=== PATIENT | male | born 1945 | race American Indian/Alaskan Native ===

== ENCOUNTER → 2016-08-29 | Outpatient (CLI) | payer OTHER, MEDICAID ==
--- NOTE | 2016-08-29 15:39 | DX ---
Lumbar spine upright AP and lateral 1511 hours. History: Follow-up fusion. History of degenerative disk disease. Findings: Comparison to prior study from March 20, 2016. Comparison also to prior MRI lumbar spine f rom May 05, 2016. Vertebral body heights are well-maintained. Pedicle screws and paraspinal rods are in stable position from L3 through S1 with good alignment. Disk replacement material is also in stable position. The re maining intervertebral disk spaces of the upper lumbar spine are normal in appearance and stable. The re are no subluxations. There are no lytic or sclerotic osseous lesions or evidence of scoliosis. Impression: 1. Stable fusion from L3 through S1.
== END ==
LOC: FIMAGING 15:10
PROVIDERS: ATTEND Physician Assistant Surgical
DX: M51.36 Other intervertebral disc degeneration, lumbar region (principal); Z98.1 Arthrodesis status

== ENCOUNTER → 2017-05-19 | Outpatient (CLI) | payer OTHER, MEDICAID | LOC: FIMAGING 10:11 | PROVIDERS: ATTEND Physician Assistant Surgical | DX: M48.061 Spinal stenosis, lumbar region without neurogenic claudication (principal); M46.96 Unspecified inflammatory spondylopathy, lumbar region; M51.36 Other intervertebral disc degeneration, lumbar region; M51.37 Other intervertebral disc degeneration, lumbosacral region; Z98.1 Arthrodesis status ==

== ENCOUNTER → 2017-05-26 | Outpatient (CLI) | payer OTHER, MEDICAID | LOC: FIMAGING 10:15 | PROVIDERS: ATTEND Neurological Surgery | DX: M51.26 Other intervertebral disc displacement, lumbar region (principal); M54.40 Lumbago with sciatica, unspecified side; M48.061 Spinal stenosis, lumbar region without neurogenic claudication; Z98.1 Arthrodesis status ==

== ENCOUNTER → 2017-06-11 | Outpatient (CLI) | payer OTHER, MEDICAID | LOC: FIMAGING 10:24 | PROVIDERS: ATTEND Family Medicine | DX: Z01.811 Encounter for preprocedural respiratory examination (principal); J45.909 Unspecified asthma, uncomplicated; E78.1 Pure hyperglyceridemia ==

== ENCOUNTER → 2017-07-03 | Outpatient (CLI) | payer OTHER, MEDICAID | LOC: BHFA 12:00 | PROVIDERS: ATTEND Internal Medicine Cardiovascular Disease | DX: Z01.810 Encounter for preprocedural cardiovascular examination (principal) ==

== ENCOUNTER 2017-07-07 11:03 | Inpatient (IN) | payer OTHER, MEDICAID ==
[2017-07-07] MEDS ORDERED: LIDOCAINE 1% 2 ML INJ ID PRN (11:46)
[2017-07-07] MEDS ORDERED: LR 1,000 ML IV ONE (11:46)
[2017-07-07] MEDS ORDERED: THROMBIN (BOVINE) 20,000 UNIT VIAL TP ONE (12:20)
[2017-07-07] MEDS ORDERED: BUPIVACAINE 0.25% 30 ML SDV ONE ×2 (12:20→12:21)
[2017-07-07] MEDS ORDERED: CITRATE DEXTROSE SOLN 500 ML BAG ONE (12:21)
[2017-07-07] MEDS ORDERED: BACITRACIN 50,000 UNITS/10 ML SYR IRR ONE (12:21)
--- NOTE | 2017-07-07 12:32 | PDHPUP ---
History & Physical Update H&P update statement: This history and physical update is based on an assessment of the patient which was completed after admission or registration (within 24 hours), but prior to the surgery/procedure. H&P update: H&P reviewed & patient examined, no change in patient's condition since H&P completed (Consent signed and site marked. All questions answered.)
[2017-07-07] MEDS ORDERED: MIDAZOLAM 2 MG/2 ML VIAL IVP ONE (12:34)
[2017-07-07] MEDS ORDERED: MIDAZOLAM 2 MG/2 ML VIAL ONE (12:35)
[2017-07-07] MEDS ORDERED: GABAPENTIN 300 MG CAP PO ONE (12:36)
[2017-07-07] MEDS ORDERED: ACETAMINOPHEN 500 MG TAB PO ONE (12:36)
[2017-07-07] MEDS ORDERED: ceFAZolin 2 GM/SWFI 2 GM/20 ML SYR IVP ONE (12:36)
[2017-07-07] MEDS ORDERED: morphINE PF 5 MG/10 ML INJ IT ONE (12:36)
--- NOTE | 2017-07-07 12:37 | PDGENHP ---
History and Physical - Chief Complaint neurogenic claudication - History of Present Illness Mr. Whitlock is known to us for both cervical spine and carpal tunnel surgeries. His cervical spine MRI showed a spondylolisthesis of C4 in relation to C5 and spinal stenosis at the C5/C6 level with foraminal stenosis. On clinical examination he had evidence of weakness in his hands and gait imbalance which had been progressive. His EMG also showed right sided carpal tunnel syndrome. We discussed the risks and benefits and treatment alternatives, including no intervention, but given his progressive weakness and difficulty with his balance and findings on cervical MRI, we recommended surgical intervention. He agreed and underwent C4/C5/C6 ACDF on 06/16/14. After careful decision making and discussion he then underwent CTR on 11/24/[address] Deutsch. He had shoulder pain after an accident and ortho eval revealed general degeneration in the shoulder without acute injury. He had been experiencing low back pain and circumferential bilateral leg pain down the knees. . He trialed conservative management and injections and ultimately underwent an L3-S1 TLIF/PSF with Dr. Deutsch on 09/18/15. He presented 1.5 years post operatively after his lumbar fusion with worsening pain in his legs. He states that sometimes his left leg gives out on him. He has low back pain that radiates to both sides and down to his buttock. He has pain in his anterior thighs to the level of his knees. If he sits still the pain improves but if he is up and walking or changing positions frequently it makes the pain worse. He states that the pain in his leg is getting progressively worse and he is having weakness in his anterior thighs. Standing up straight make the pain worse. He is unable to hike or even walk around [employer] or [employer]. ROS: Negative other then HPI Problems Problem Status Onset Fusion of lumbar spine Acute Allergy/AdvReac Type Severity Reaction Status Date / Time No Known Allergies Allergy Verified 06/10/17 13:09 Home medications: Fluticasone Nasal [Flonase Nasal [place]] 1 - 2 sprays EACHNARE HS 05/27/14 [Last Taken Unknown] Acetaminophen [Tylenol 325mg (*)] 325 mg PO DAILY PRN 06/05/17 [Last Taken Unknown] Albuterol [Proventil Inhaler HFA (*)] 1 - 2 puffs IH DAILY PRN 06/05/17 [Last Taken Unknown] Aspirin [Aspirin 325 mg (*)] 325 mg PO HS 06/05/17 [Last Taken Unknown] Cetirizine [ZyrTEC 10 mg (*)] 10 mg PO HS 06/05/17 [Last Taken Unknown] Cyclobenzaprine [Flexeril 10 MG (*)] 10 mg PO HS PRN 06/05/17 [Last Taken Unknown] Halobetasol Propionate 1 christa TP DAILY PRN 06/05/17 [Last Taken Unknown] Meloxicam 15 mg PO DAILY PRN 06/05/17 [Last Taken Unknown] Terbinafine HCl [LamISIL 250 MG (*)] 250 mg PO HS 06/05/17 [Last Taken Unknown] Family History: Relationship Family Member Name Age at Condition Onset Age Cause of Sister N Alive and Well Smoking Status: Use Status Type Smoking Status Usage Per Day Years Used Total Pack Years no/never Tobacco Cessation Information: Smoking status: Never smoker. Social History: Tobacco use Denies Preferred language is Omani. 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 Marital Status/Family/Social Support: Currently single. Alcohol Use: There is a history of alcohol use. consumed occasionally. Past Medical history ACDF C4-6 2013 Prior lumbar fusion L3-S1 CTR on 11/24/14 Physical Exam Temp Pulse Resp BP Pulse Ox 36.4 C 73 18 136/77 H 93 07/07/17 11:48 07/07/17 11:48 07/07/17 11:48 07/07/17 11:48 07/07/17 11:48 NAD A&Ox3 MAEx4 5/5 and equal in BUE and BLE. Sensation intact in BUE and BLE Assessment and Plan Medardo is a 71y/o male with a history of L3-S1 TLIF/PSF, who is has neurogenic claudication and lumbar stenosis. His new MRI demonstrates severe stenosis adjacent to his lumbar fusion at L2/3. His CT scan demonstrated bony growth across his prior fusion. Given his symptoms and imaging findings have recommended Exploration, revision and possible removal of prior hardware L3-S1; L2/3 laminectomy with left L2/3 TLIF; PSF L2-4 He will follow up in the office for a lvl3 consent visit. If he develops any new or worsening symptoms he is encouraged to give our office a call. History Information - Allergies/Home Medication List Allergies/Adverse Reactions: No Known Allergies Allergy (Verified 06/10/17 13:09) Home Medications: Fluticasone Nasal [Flonase Nasal [place]] 1 - 2 sprays EACHNARE HS 05/27/14 [Last Taken Unknown] Acetaminophen [Tylenol 325mg (*)] 325 mg PO DAILY PRN 06/05/17 [Last Taken Unknown] Albuterol [Proventil Inhaler HFA (*)] 1 - 2 puffs IH DAILY PRN 06/05/17 [Last Taken Unknown] Aspirin [Aspirin 325 mg (*)] 325 mg PO HS 06/05/17 [Last Taken Unknown] Cetirizine [ZyrTEC 10 mg (*)] 10 mg PO HS 06/05/17 [Last Taken Unknown] Cyclobenzaprine [Flexeril 10 MG (*)] 10 mg PO HS PRN 06/05/17 [Last Taken Unknown] Halobetasol Propionate 1 christa TP DAILY PRN 06/05/17 [Last Taken Unknown] Meloxicam 15 mg PO DAILY PRN 06/05/17 [Last Taken Unknown] Terbinafine HCl [LamISIL 250 MG (*)] 250 mg PO HS 06/05/17 [Last Taken Unknown] I have personally reviewed and updated: family history, medical history, social history, surgical history - Social History Smoking Status: Never smoked Review of Systems Review of Systems: Physical Exam Physical Exam: Temp Pulse Resp BP Pulse Ox 36.4 C 73 18 136/77 H 93 07/07/17 11:48 07/07/17 11:48 07/07/17 11:48 07/07/17 11:48 07/07/17 11:48
[2017-07-07] MEDS ORDERED: PROPOFOL/EMULSION 500 MG/50 ML BOTTLE IV ONE ×2 (12:45→14:57)
[2017-07-07] MEDS ORDERED: fentaNYL 100 MCG/2 ML INJ ONE (12:45)
[2017-07-07] MEDS ORDERED: DEXAMETHASONE 4 MG/ML VIAL ONE ×2 (12:45)
[2017-07-07] MEDS ORDERED: REMIFENTANIL HCL 1 MG VIAL ONE ×2 (12:45→14:56)
[2017-07-07] MEDS ORDERED: ONDANSETRON 4 MG/2 ML VIAL ONE (12:45)
[2017-07-07] MEDS ORDERED: LIDOCAINE 2% 100 MG/5 ML SYR ONE (12:45)
--- NOTE | 2017-07-07 12:52 | PDANEPAE ---
ANE History of Present Illness lumbar laminectomy and hardware revision ANE Past Medical History - Cardiovascular History Hx Hypertension: No Hx Arrhythmias: No Hx Chest Pain: No Hx Coronary Artery / Peripheral Vascular Disease: No Hx CHF / Valvular Disease: No Hx Palpitations: No Cardiovascular History Comment: dyslipidemia - Pulmonary History Hx COPD: No Hx Asthma/Reactive Airway Disease: Yes Hx Recent Upper Respiratory Infection: No Hx Oxygen in Use at Home: No Hx Sleep Apnea: No Sleep Apnea Screening Result - Last Documented: Negative Pulmonary History Comment: ASTHMA USES INHALERS- instructed pt to bring inhalers to hospital - Neurologic History Hx Cerebrovascular Accident: No Hx Seizures: No Hx Dementia: No Neurologic History Comment: HX OF BACK SURGERY x3. DJD - Endocrine History Hx Diabetes: No - Renal History Hx Renal Disorders: No - Liver History Hx Hepatic Disorders: No - Neurological & Psychiatric Hx Hx Neurological and Psychiatric Disorders: No - Cancer History Hx Cancer: No - Congenital Disorder History Hx Congenital Disorders: No - GI History Hx Gastrointestinal Disorders: Yes Gastrointestinal History Comment: GERD - Other Health History Other Health History: ALLERGIC RHINITIS. ECZEMA. wears glasses - Chronic Pain History Chronic Pain: Yes (back and right arm) - Surgical History Prior Surgeries: 09/18/15 l3-4, l3-s1 TLIF with Rajpal. 2015 CARPAL TUNNEL SURG R. 05/2014 C4/5 C 5/6 RADICULOPATHY. BACK SURGERY X2 FOR RUPTURED DISCS ANE Review of Systems Review of Systems: - Exercise capacity METS (RN): 4 METS ANE Patient History - Allergies Allergies/Adverse Reactions: No Known Allergies Allergy (Verified 06/10/17 13:09) - Home Medications Home medications: home medication list seen and reviewed Home Medications: Fluticasone Nasal [Flonase Nasal [place]] 1 - 2 sprays EACHNARE HS 05/27/14 [Last Taken 07/07/17 08:00] Acetaminophen [Tylenol 325mg (*)] 325 mg PO DAILY PRN 06/05/17 [Last Taken 06/02] Albuterol [Proventil Inhaler HFA (*)] 1 - 2 puffs IH DAILY PRN 06/05/17 [Last Taken 07/07/17 08:00] Aspirin [Aspirin 325 mg (*)] 325 mg PO HS 06/05/17 [Last Taken 06/29/17] Cetirizine [ZyrTEC 10 mg (*)] 10 mg PO HS 06/05/17 [Last Taken 07/06/17 21:00] Cyclobenzaprine [Flexeril 10 MG (*)] 10 mg PO HS PRN 06/05/17 [Last Taken 21:00] Halobetasol Propionate 1 christa TP DAILY PRN 06/05/17 [Last Taken 06/09/17] Meloxicam 15 mg PO DAILY PRN 06/05/17 [Last Taken 06/30/17] Terbinafine HCl [LamISIL 250 MG (*)] 250 mg PO HS 06/05/17 [Last Taken 07/05/17] - NPO status NPO Status: no food or drink >8 hours NPO Since - Liquids (Date): 07/06/17 NPO Since - Liquids (Time): 23:00 NPO Since - Solids (Date): 07/06/17 NPO Since - Solids (Time): 22:00 - Anes Hx Anes Hx: no prior problems - Smoking Hx Smoking Status: Never smoked - Alcohol Use Alcohol Use: Rarely - Family Anes Hx Family Anes Hx: none Family Hx Anesthesia Complications: NONE ANE Labs/Vital Signs - Labs - CBC WBC: reviewed and okay - Vital Signs Blood Pressure: 136/77 Heart Rate: 73 Respiratory Rate: 18 O2 Sat (%): 93 Height: 162.56 cm Weight: 74.843 kg ANE Physical Exam - Airway Neck exam: FROM Mallampati Score: Class 2 Mouth exam: normal dental/mouth exam - Pulmonary Pulmonary: no respiratory distress - Cardiovascular Cardiovascular: regular rate and rhythym ANE Anesthesia Plan Anesthesia Plan: general endotracheal anesthesia (R/B/A explained and patient agrees to proceed)
[2017-07-07] MEDS ORDERED: epHEDrine SULFATE 10 MG/ML SYR ONE ×2 (13:05)
[2017-07-07] MEDS ORDERED: PHENYLEPHRINE HCL 100 MCG/ML SYR ONE (13:18)
[2017-07-07] MEDS ORDERED: PHENYLEPHRINE 10 MG/ML SDV ONE (13:20)
[2017-07-07] MEDS ORDERED: morphINE PF 5 MG/10 ML INJ ONE (14:54)
[2017-07-07] MEDS ORDERED: ALBUTEROL 3 ML DEYVIAL IH PRN (16:09)
[2017-07-07] MEDS ORDERED: MEPERIDINE 25 MG/ML SYR IVP PRN (16:09)
[2017-07-07] MEDS ORDERED: PHENYLEPHRINE HCL 100 MCG/ML SYR IVP PRN (16:09)
[2017-07-07] MEDS ORDERED: fentaNYL 100 MCG/2 ML INJ IVP PRN (16:09)
[2017-07-07] MEDS ORDERED: ACETAMINOPHEN 500 MG TAB PO PRN (16:09)
[2017-07-07] MEDS ORDERED: ONDANSETRON 4 MG/2 ML VIAL IVP PRN ×2 (16:09→16:38)
[2017-07-07] MEDS ORDERED: OXYCODONE/APAP 5/325 TAB PO PRN (16:09)
[2017-07-07] MEDS ORDERED: PROMETHAZINE HCL 25 MG/ML INJ IVP PRN (16:09)
[2017-07-07] MEDS ORDERED: HYDROCODONE/APAP 5/325 TAB PO PRN (16:09)
[2017-07-07] MEDS ORDERED: METOCLOPRAMIDE 10 MG/2 ML VIAL IVP PRN (16:09)
[2017-07-07] MEDS ORDERED: DEXAMETHASONE 4 MG/ML VIAL IVP PRN (16:09)
[2017-07-07] MEDS ORDERED: DIAZEPAM 10 MG/2 ML SYR IVP PRN (16:09)
[2017-07-07] MEDS ORDERED: LR 500 ML IV PRN (16:09)
[2017-07-07] MEDS ORDERED: NALOXONE HCL 0.4 MG/ML INJ IVP PRN (16:09)
[2017-07-07] MEDS ORDERED: CYCLOBENZAPRINE 10 MG TAB PO PRN ×2 (16:32→16:49)
[2017-07-07] MEDS ORDERED: ALBUTEROL 200 PUFFS/18 GM MDI IH PRN (16:32)
[2017-07-07] MEDS ORDERED: HALOBETASOL PROPIONATE TP PRN (16:32)
[2017-07-07] MEDS ORDERED: ACETAMINOPHEN 325 MG TAB PO PRN (16:32)
[2017-07-07] MEDS ORDERED: BISACODYL 10 MG SUPP PR PRN (16:38)
[2017-07-07] MEDS ORDERED: diphenhydrAMINE 25 MG CAP PO PRN (16:38)
[2017-07-07] MEDS ORDERED: HYDROmorphONE/DILAUDID 1 MG/ML INJ IVP PRN (16:38)
[2017-07-07] MEDS ORDERED: ONDANSETRON DISINTEGRATING 4 MG TAB PO PRN (16:38)
[2017-07-07] MEDS ORDERED: MAGNESIUM HYDROXIDE 30 ML UDCUP PO PRN (16:38)
[2017-07-07] MEDS ORDERED: LACTULOSE 20 GM/30 ML UDCUP PO PRN (16:38)
[2017-07-07] MEDS ORDERED: POLYETHYLENE GLYCOL 3350 17 GM PKT PO PRN (16:38)
[2017-07-07] MEDS ORDERED: NS W/ 20 KCl/L 1,000 ML IV SCH (16:45)
--- NOTE | 2017-07-07 16:52 | POSTOPPROG ---
Post Op Note Date of Operation: 07/07/17 Surgeon: Brynn Little Sheriffs: Mamta Little PA-C Anesthesiologist: Bernardo Anesthesia: GET(General Endotracheal) Pre-op Diagnosis: lumbar stenosis Post-op Diagnosis: same Indication: nerve compression Procedure: lumbar hardware exploration/removal L5-S1, L23 lami/TLIF, L2-4 PSF Findings: Please see dictation Inf/Abcess present in the surg proc area at time of surgery?: No Depth: Organ Space EBL: 100-500 Complications: none Drains: Fercho CLARK Addendum - Addendum .: S: Pt awake in PACU, denies back pain O: Sleepy - awakens easily and is alert and appropriate NAD VSS MAEx4 Motor 5/5 BUE/BLE Incision dressed cdi Spears JPx1 A: 71 yo M s/p lumbar hardware exploration/removal L5-S1, L23 lami/TLIF, L2-4 PSF P: PT/OT Brace when OOB Pain management TEDs, SCDs, lovenox POD#1 Post op xrays pending ADRIANA spears in AM Call NS with any issues
[2017-07-07] MEDS ORDERED: OXYCODONE/APAP 5/325 TAB ONE (18:46)
[2017-07-07] MEDS: ceFAZolin 2 GM/DEXTROSE 100 ML IV SCH (20:40)
[2017-07-07] MEDS: METHOCARBAMOL 750 MG TAB PO PRN (20:41)
[2017-07-07] MEDS: CETIRIZINE 10 MG TAB PO SCH (20:41)
[2017-07-07] MEDS: FAMOTIDINE 20 MG TAB PO SCH (20:41)
[2017-07-07] MEDS: SENNOSIDES/DOCUSATE SODIUM TAB PO SCH (20:41)
[2017-07-07] MEDS: TERBINAFINE HCL 250 MG TAB PO SCH (20:51)
[2017-07-07] MEDS ORDERED: FLUTICASONE NASAL 120 SPRAYS/16 GM MDI EACHNARE SCH (21:00)
[2017-07-07] MEDS: POLYETHYLENE GLYCOL 3350 17 GM PKT PO SCH (21:58)
[2017-07-07] MEDS: ACETAMINOPHEN 500 MG TAB PO SCH (21:58)
[2017-07-07] MEDS: oxyCODONE IR 5 MG TAB PO PRN (21:58)
--- NOTE | 2017-07-08 03:04 | GOP ---
[f rep st] OPERATIVE REPORT DATE OF OPERATION: 07/07/2017 SURGEON: Mynor Deutsch MD CLOUD ENGINEER: ANA MARIA Mitchell ANESTHESIA: General. PREOPERATIVE DIAGNOSIS: 1. Adjacent level breakdown at L2-L3 with previous spinal fusion L2 through S1. 2. Low back pain and lower extremity claudication and weakness. 3. Treatment refractory to nonoperative intervention. POSTOPERATIVE DIAGNOSIS: 1. Adjacent level breakdown at L2-L3 with previous spinal fusion L2 through S1. 2. Low back pain and lower extremity claudication and weakness. 3. Treatment refractory to nonoperative intervention. PROCEDURE PERFORMED: 1. Posterior arthrodesis with approach to L2, L3, L4, L5, and S1. 2. Exploration of prior lumbar hardware L3 through S1, with subsequent removal of posterior segmental instrumentation, including the bilateral rods and bilateral pedicle screws from the L5 and S1 levels. 3. Placement of new bilateral pedicle screws into the L2 level from the Orthofix Firebird System. 4. Decompressive laminectomy L2-L3 with bilateral mesial facetectomies. 5. Left-sided L2-L3 transforaminal lumbar interbody fusion with a 7 x 23 mm Cuikertronic Elevate PEEK titanium cage filled with morselized autograft and allograft. 6. Posterolateral fusion on the right between L2-L3 with morselized autograft and allograft. 7. Posterolateral fusion with bilateral segmental hardware placement from L2 through L4 from the Orthofix Firebird system. 8. Use of intraoperative 3D Stealth navigation. 9. Use of intraoperative fluoroscopy, less than 1 hour physician time. 10. Use of neuromonitoring. 11. Use of operating microscope. 12. Injection of preservative-free intrathecal narcotics. FINDINGS: per imaging SPECIMENS: None. ESTIMATED BLOOD LOSS: 300 mL. INDICATIONS: The patient is a 71-year-old gentleman who has undergone prior multiple lumbar fusions by myself, including L3 through S1 level from which he did quite well several years ago. He presented with worsening low back pain and lower extremity radiculopathy and weakness. He had evidence of severe spinal stenosis at L2-L3 with adjacent level breakdown. After discussion of risks, benefits, and treatment alternatives, and after failing nonoperative intervention, we decided to proceed forth with surgery as described above. DESCRIPTION OF PROCEDURE: The patient was brought to the operating theater and underwent general endotracheal anesthesia without complications. He had Venodynes, JORGE hose, and the appropriate lines placed by Anesthesia. He was flipped prone onto the Fercho table and all bony prominences were inspected and padded. The previous lumbar incision was identified and prepped and draped in the usual sterile surgical fashion. A time-out was completed per protocol, and the patient received antibiotics within 1 hour of incision. The previous incision was identified and marked more cranially. The incision was infiltrated with Marcaine with epinephrine and taken down with the scalpel blade. Using monopolar, the incision was then taken down in the midline through the lumbodorsal fascia, and we identified the spinous process of L2-L3, and skived off laterally with a subperiosteal dissection until we identified the previous hardware at the L3, L4, L5, and S1 levels bilaterally. We sequentially removed the cap screws and bilateral rods from L3 through S1 and passed them off the field. We then explored the hardware, and he had evidence of good bony growth on the hardware, demonstrating good solid fusion. At this point, we sequentially removed the bilateral pedicle screws from the L5 and S1 levels and passed them off the field. We then attached a 3D Stealth navigation clamp to the spinous process of L3 and completed a 3D Stealth navigation spin. Using 3D Stealth navigation, we placed the jet pilot holes for the bilateral pedicle screws into L2. All holes were manually palpated with no evidence of any cortical breaches. We then tapped and placed a 6.5 x 50 mm screw bilaterally in the L2 from the Rambusd system. Another 3D Stealth navigation spin demonstrated good placement of the hardware. At this point, the microscope was brought into the field to assist with microscopic dissection and to maintain illumination and magnification. Using a combination of the bur tip on the drill bit, Kerrison punches, and a Leksell rongeur, we completed decompressive laminectomy with bilateral mesial facetectomies at L2-L3. We resected the pars on the left side between L2-3 and completed a foraminotomy. We then distracted the L2-L3 disk space and completed a left-sided L2-3 diskectomy. We prepared the cartilage endplates and measured interbody space. We then placed a 7 x 23 mm titanium PEEK Elevate cage filled with morselized autograft and allograft anteriorly toward the midline. We packed additional morselized autograft in the disk space interbody fusion. We let down distraction and decorticated the bone on the right side between L2 and L3. We placed 2 lordotic rods into the heads of the screws between L2 and L4, and secured them down with cap screws, which were tightened per the malt liquors sales supervisor's setting. We irrigated the wound copiously with bacitracin irrigation and placed morselized autograft and allograft on the right side between L2 to 3 for the posterolateral fusion. We injected preservative-free intrathecal narcotics and left a drain in the subfascial space. The wound was then closed in multiple layers using Vicryl sutures in the deep layers and Dermabond for the skin. The patient's wounds were dressed sterilely. He was flipped supine onto the transfer cart. He was awakened, extubated, and taken to the recovery room in stable condition. There were no complications and no noted changes on neuromonitoring throughout the procedure. COMPLICATIONS: None. /[id number]/MODL MTDD
[2017-07-08] MEDS: METHOCARBAMOL 750 MG TAB PO PRN ×2 (04:52→16:18)
[2017-07-08] MEDS: ACETAMINOPHEN 500 MG TAB PO SCH ×3 (04:52→20:50)
[2017-07-08] MEDS: ceFAZolin 2 GM/DEXTROSE 100 ML IV SCH (04:52)
[2017-07-08] MEDS: oxyCODONE IR 5 MG TAB PO PRN ×4 (04:52→20:50)
--- NOTE | 2017-07-08 07:40 | NEUSURGPN ---
Date of Surgery: 07/07/17 Post Op Day: 1 Assessment/Plan: Assessment: 71 yo M s/p lumbar hardware exploration/removal L5-S1, L2/3 lami/ TLIF, L2-4 PSF POD #1 Plan: -s/p L spine fusion: legs feel better, pt with expected lower back pain -PT/OT -Brace when OOB-sister to bring in brace later this am -Pain management -TEDs, SCDs, lovenox POD#1 -Post op xrays pending today -DC spears this AM -call with any questions or concerns -pt understands and agrees -pt seen by Dr Deutsch as well Subjective: Awake and alert. NAD. Eating/drinking and voiding. No f/c/n/v/d. Objective: NAD VSS PERRLA/EOMI no droop MAEx4 Motor 5/5 BUE/BLE Incision dressed cdi Spears JPx1 Neuro Check Frequency: per routine Urinary Catheter in Place: Yes Urinary Catheter Indication: Other (Use Comment) (to be removed this am) - Physician Discussed Patient with Dr.: Deutsch Neurosurgery Physical Exam - Vitals, I&O, Labs I and O 07/07/17 07/08/17 07/09/17 05:59 05:59 05:59 Intake Total 2350 Output Total 2580 Balance -230 Weight 74.843 kg Intake: Oral (ml) 500 IV Intake (ml) 1850 Output: Urine (ml) 2100 Catheter 2100 Estimated Blood Loss (ml) 400 SOLA Drain Output (ml) 80 #1 Back 80 Other: Number of Voids Catheter 1 Vital Signs Temp Pulse Resp BP Pulse Ox 36.9 C 96 16 113/64 92 07/08/17 05:04 07/08/17 05:04 07/08/17 05:04 07/08/17 05:04 07/08/17 05:04 ICD10 Worksheet Patient Problems: Problems Problem Status Onset Lumbar stenosis Acute Fusion of lumbar spine Acute - ICD10 Problem Qualifiers (1) Lumbar stenosis
[2017-07-08] MEDS: POLYETHYLENE GLYCOL 3350 17 GM PKT PO SCH ×3 (09:08→20:49)
[2017-07-08] MEDS: FAMOTIDINE 20 MG TAB PO SCH ×2 (09:09→20:50)
[2017-07-08] MEDS: ENOXAPARIN 40 MG/0.4 ML SYR SC SCH (09:09)
[2017-07-08] MEDS: SENNOSIDES/DOCUSATE SODIUM TAB PO SCH ×2 (09:09→20:50)
[2017-07-08] MEDS: FLUTICASONE NASAL 120 SPRAYS/16 GM MDI EACHNARE SCH (09:12)
--- NOTE | 2017-07-08 17:11 | ASMTCASEMG ---
Living Arrangements What is your living Answers: With Other Relative(s) arrangement? Who do you live with? Type Of Residence What kind of residence do Answers: House you live in? Discharge Plan Comments Coordination Status Comments Notes: Pt is a 71 y/o man admitted for adjacent lateral stenosis, weabuens and back pain. CM met w/ pt for dispo planning. Pt lives w/ his sister Minerva and brother in law. Pt reports that he had HC in the past and had a great experience but could not remember which agency it was. Pt requested that CM speaks w/ his sister Minerva (P#: [phone]). Therapies have been ordered and awaiting recommendation. CM left a msg w/ Minerva and requested a call back. Needs are TBD at this time. CM to follow. Plan: TBD Date Signed: 07/08/2017 05:11 PM Electronically Signed By:ELYSSA Phipps
[2017-07-08] MEDS: TERBINAFINE HCL 250 MG TAB PO SCH (20:49)
[2017-07-08] MEDS: CETIRIZINE 10 MG TAB PO SCH (20:52)
[2017-07-09] MEDS: METHOCARBAMOL 750 MG TAB PO PRN ×3 (05:18→22:01)
[2017-07-09] MEDS: ACETAMINOPHEN 500 MG TAB PO SCH ×3 (05:18→22:02)
[2017-07-09] MEDS: oxyCODONE IR 5 MG TAB PO PRN ×4 (05:18→22:01)
[2017-07-09] MEDS: POLYETHYLENE GLYCOL 3350 17 GM PKT PO SCH ×3 (08:29→22:06)
[2017-07-09] MEDS: FLUTICASONE NASAL 120 SPRAYS/16 GM MDI EACHNARE SCH (08:29)
[2017-07-09] MEDS: FAMOTIDINE 20 MG TAB PO SCH ×2 (08:29→22:02)
[2017-07-09] MEDS: ENOXAPARIN 40 MG/0.4 ML SYR SC SCH (08:29)
[2017-07-09] MEDS: SENNOSIDES/DOCUSATE SODIUM TAB PO SCH ×2 (08:30→22:00)
--- NOTE | 2017-07-09 12:53 | NEUSURGPN ---
Date of Surgery: 07/07/17 Post Op Day: 2 Assessment/Plan: Assessment: 71 yo M s/p lumbar hardware exploration/removal L5-S1, L2/3 lami/ TLIF, L2-4 PSF POD #2 Plan: -s/p L spine fusion: legs feel better, pt with expected lower back pain -PT/OT -Brace when OOB -Pain management-CPM -TEDs, SCDs, lovenox POD#1 -Post op xrays look good -Serra out -will d/w Dr Deutsch regarding removal of SOLA -call with any questions or concerns -pt understands and agrees -pt seen by Dr Deutsch as well Subjective: Awake and alert. NAD. Eating/drinking and voiding. No f/c/n/v/d. No schmitz/neck/ chest/abd or gu complaints. Passing gas no BM as of yet Objective: NAD VSS PERRLA/EOMI no droop MAEx4 Motor 5/5 BUE/BLE Incision dressed cdi Serra out JPx1 Neuro Check Frequency: per routine Urinary Catheter in Place: No - Physician Discussed Patient with DrAgata: La Nena Patient Seen by : La Nena Neurosurgery Physical Exam - Vitals, I&O, Labs I and O 07/08/17 07/09/17 07/10/17 05:59 05:59 05:59 Intake Total 2350 1400 Output Total 2580 780 Balance -230 620 Weight 74.843 kg Intake: Oral (ml) 500 1300 IV Intake (ml) 1850 100 Output: Urine (ml) 2100 450 Catheter 2100 Urinal 450 Estimated Blood Loss (ml) 400 SOLA Drain Output (ml) 80 330 #1 Back 80 330 Other: Intake Quantity Yes Sufficient Number of Voids Catheter 1 Toilet 2 Urinal 2 Vital Signs Temp Pulse Resp BP Pulse Ox 36.9 C 85 14 120/80 93 07/09/17 07:27 07/09/17 07:27 07/09/17 07:27 07/09/17 07:27 07/09/17 07:27 ICD10 Worksheet Patient Problems: Problems Problem Status Onset Lumbar stenosis Acute Fusion of lumbar spine Acute - ICD10 Problem Qualifiers (1) Lumbar stenosis
--- NOTE | 2017-07-09 14:15 | ASMTCMCOM ---
CM Note CM Note Notes: Chart reviewed. Per therapies no home needs identified at this time. Anticipate that patient will dc home without needs. CM available should needs arise. Date Signed: 07/09/2017 02:15 PM Electronically Signed By:Annette Kaplan RN
[2017-07-09 16:01] VITALS: RESP 16
[2017-07-09] MEDS: TERBINAFINE HCL 250 MG TAB PO SCH (22:01)
[2017-07-09] MEDS: CETIRIZINE 10 MG TAB PO SCH (22:02)
[2017-07-10] MEDS: ACETAMINOPHEN 500 MG TAB PO SCH (05:30)
[2017-07-10] MEDS: oxyCODONE IR 5 MG TAB PO PRN ×2 (05:31→10:32)
[2017-07-10] MEDS: METHOCARBAMOL 750 MG TAB PO PRN (05:31)
[2017-07-10 08:16] VITALS: TEMP 98.2
[2017-07-10] MEDS: FAMOTIDINE 20 MG TAB PO SCH (08:29)
[2017-07-10] MEDS: FLUTICASONE NASAL 120 SPRAYS/16 GM MDI EACHNARE SCH (08:29)
[2017-07-10] MEDS: ENOXAPARIN 40 MG/0.4 ML SYR SC SCH (08:30)
--- NOTE | 2017-07-10 08:47 | NEUSURGPN ---
Assessment/Plan: Assessment: 71 yo M s/p lumbar hardware exploration/removal L5-S1, L2/3 lami/ TLIF, L2-4 PSF POD #3 Plan: -s/p L spine fusion: legs feel better, pt with expected lower back pain -PT/OT -Brace when OOB -Pain management-CPM -TEDs, SCDs, lovenox POD#1 -Post op xrays look good -Serra out -DC SOLA drain -DC to home with [facility] later today as long as patient continues to do well -OK to shower, change dressing. -pt d/w Dr Deutsch Subjective: Pt resting in bedside chair, states he is doing well overall. Objective: AAOx3 NAD VSS MAEx4 Motor 5/5 BLE Brace on JPx1 +LT Urinary Catheter in Place: No - Physician Discussed Patient with : La Nena Neurosurgery Physical Exam - Vitals, I&O, Labs I and O 07/09/17 07/10/17 07/11/17 05:59 05:59 05:59 Intake Total 1400 500 Output Total 780 120 Balance 620 380 Intake: Oral (ml) 1300 500 IV Intake (ml) 100 Output: Urine (ml) 450 Urinal 450 SOLA Drain Output (ml) 330 120 #1 Back 330 120 Other: Intake Quantity Yes Yes Sufficient Number of Voids Toilet 2 1 Urinal 2 Number of Stools Toilet 1 Vital Signs Temp Pulse Resp BP Pulse Ox 36.8 C 100 16 123/72 H 93 07/10/17 08:00 07/10/17 08:00 07/10/17 08:00 07/10/17 08:00 07/10/17 08:00 ICD10 Worksheet Patient Problems: Problems Problem Status Onset Lumbar stenosis Acute Fusion of lumbar spine Acute
[2017-07-10] MEDS: POLYETHYLENE GLYCOL 3350 17 GM PKT PO SCH (10:42)
[2017-07-10] MEDS: SENNOSIDES/DOCUSATE SODIUM TAB PO SCH (10:43)
[2017-07-10 12:13] VITALS: BP 130/86; PULSE 96; O2SAT 88
--- NOTE | 2017-07-10 12:23 | ASDISCHSUM ---
Discharge Information Plan Status:Home with Home Health Medically Cleared to Leave:07/09/2017 Discharge Date:07/10/2017 01:55 PM CM D/C Disposition:Home Health Service ADT D/C Disposition:Home Health Service Projected Discharge Date:07/10/2017 11:00 AM Transportation at D/C:Family Discharge Delay Reason: Follow-Up Date:07/10/2017 11:00 AM Discharge Slot: Final Diagnosis: Placement Information Referral Type:*Home Health Care Services Referral ID:[id number] Provider Name:[facility] Address 1:[address] [address] Address 2: City:[place] Selection Factors: State:[place] Patient Contact Information Contact Name:ELVIA Relationship:Sister Address:[address] City:[place] Alternate Phone: State/Zip Code:[place] [address] Email: Financial Information Financial Class: Primary Plan Desc:MEDICARE INPATIENT Primary Plan Number:[id number] Secondary Plan Desc:MEDICA[place] Secondary Plan Number:[id number] Assessment Information [facility] Initial CM Assessment Living Arrangements What is your living Answers: With Other Relative(s) arrangement? Who do you live with? Type Of Residence What kind of residence do Answers: House you live in? Discharge Plan Comments Coordination Status Comments Notes: Pt is a 71 y/o man admitted for adjacent lateral stenosis, weabuens and back pain. CM met w/ pt for dispo planning. Pt lives w/ his sister Minerva and brother in law. Pt reports that he had HC in the past and had a great experience but could not remember which agency it was. Pt requested that CM speaks w/ his sister Minerva (P#: [phone]). Therapies have been ordered and awaiting recommendation. CM left a msg w/ Minerva and requested a call back. Needs are TBD at this time. CM to follow. Plan: TBD Date Signed: 07/08/2017 05:11 PM Electronically Signed By:ELYSSA Phipps [facility] CM Progress Note CM Note CM Note Notes: Chart reviewed. Per therapies no home needs identified at this time. Anticipate that patient will dc home without needs. CM available should needs arise. Date Signed: 07/09/2017 02:15 PM Electronically Signed By:Annette Kaplan RN Case Management Discharge Plan Note Case Management Discharge Discharge Order Complete? Answers: Yes Patient to Obtain Answers: via Family Medications Transportation Arranged Answers: Family/Friends Faxed Final Orders Answers: Yes Family Notified Answers: Yes Discharge Comments Notes: Pt discharging home with Family HC/RN. Date Signed: 07/10/2017 01:57 PM Electronically Signed By:REJI Carvajal Intervention Information
--- NOTE | 2017-07-10 12:48 | PDIAF ---
- Diagnosis Code Status: Full Code - Medication Management Discharge Medications: Medications to Continue on Transfer Fluticasone Nasal [Flonase Nasal Gardner] 1 - 2 sprays [facility] HS 05/27/14 [Last Taken 07/07/17 08:00] Acetaminophen [Tylenol 325mg (*)] 325 mg PO DAILY PRN 06/05/17 [Last Taken 06/02] Albuterol [Proventil Inhaler HFA (*)] 1 - 2 puffs IH DAILY PRN 06/05/17 [Last Taken 07/07/17 08:00] Cetirizine [ZyrTEC 10 mg (*)] 10 mg PO HS 06/05/17 [Last Taken 07/06/17 21:00] Halobetasol Propionate 1 christa TP DAILY PRN 06/05/17 [Last Taken 06/09/17] Terbinafine HCl [LamISIL 250 MG (*)] 250 mg PO HS 06/05/17 [Last Taken 07/05/17] Methocarbamol [Robaxin 750 mg (*)] 750 mg PO QID PRN #60 tab 07/10/17 [Last Taken Unknown] oxyCODONE IR [Oxycodone Ir (*)] 5 - 10 mg PO Q4HRS PRN #90 tab 07/10/17 [Last Taken Unknown] Discharge Medications: Refer to the Discharge Home Medication list for PRN reason. - Orders Services needed: Home Care, Registered Nurse Home Care Face to Face: I certify that this patient was under my care and that I had the required [id number] encounter meeting the encounter requirements on the discharge day. My findings support the fact that the patient is homebound as defined in Home Care Face to Face Continued: CMS Chapter 7 Medicare Benefits Manual 30.1.1 , The condition of the patient is such that there exists a normal inability to leave home and consequently, leaving home would require a considerable and taxing effort. Isolation Type: None Diet Recommendation: no restrictions on diet Diet Texture: Regular Texture Diet Serra: Not applicable Wound Care Instructions: daily dressing changes - gauze and tape - Follow Up Care Current Providers and Referrals: Iris Chi MD [Primary Care Provider] - Mynor Deutsch MD [Medical Doctor] -
== END 2017-07-10 13:55 | disposition home health service (06) | DRG 455 ==
LOC: F3N 11:03
PROVIDERS: ADMIT Neurological Surgery; ATTEND Neurological Surgery
PROC: 0SB00ZZ Excision of Lumbar Vertebral Joint, Open Approach (ICD-10-PCS; principal; 2017-07-07 12:45)
PROC: 4A1004G Monitoring of Central Nervous Electrical Activity, Intraoperative, Open Approach (ICD-10-PCS; principal; 2017-07-07 12:45)
PROC: 0SG00AJ Fusion of Lumbar Vertebral Joint with Interbody Fusion Device, Posterior Approach, Anterior Column, Open Approach (ICD-10-PCS; principal; 2017-07-07 12:45)
PROC: 0QP004Z Removal of Internal Fixation Device from Lumbar Vertebra, Open Approach (ICD-10-PCS; principal; 2017-07-07 12:45)
PROC: 0SG0071 Fusion of Lumbar Vertebral Joint with Autologous Tissue Substitute, Posterior Approach, Posterior Column, Open Approach (ICD-10-PCS; principal; 2017-07-07 12:45)
PROC: 01NB0ZZ Release Lumbar Nerve, Open Approach (ICD-10-PCS; principal; 2017-07-07 12:45)
PROC: 8E0WXBF Computer Assisted Procedure of Trunk Region, With Fluoroscopy (ICD-10-PCS; principal; 2017-07-07 12:45)
DX: M48.062 Spinal stenosis, lumbar region with neurogenic claudication (principal); J45.909 Unspecified asthma, uncomplicated; E78.1 Pure hyperglyceridemia; Z98.1 Arthrodesis status
CPT/HCPCS: 97116-GP; 97161-GP; 97166-GO; 97535-GO; C1713; G8978-GP-CI; G8979-GP-CH; G8979-GP-CI; G8980-GP-CI; G8987-GO-CK; G8988-GO-CI; G8989-GO-CI; J0171; J0690; J1100; J1650; J2001; J2250; J2274; J2370; J2405; J2704; J3010; J7060

== ENCOUNTER → 2017-08-14 | Outpatient (CLI) | payer OTHER, MEDICAID | LOC: FLAB 13:04 | PROVIDERS: ATTEND Physician Assistant | DX: M51.26 Other intervertebral disc displacement, lumbar region (principal); M54.40 Lumbago with sciatica, unspecified side; Z98.1 Arthrodesis status ==

== ENCOUNTER → 2017-10-14 | Outpatient (CLI) | payer OTHER, MEDICAID | LOC: FIMAGING 18:20 | PROVIDERS: ATTEND Family Medicine | DX: J98.4 Other disorders of lung (principal) ==

== ENCOUNTER → 2017-10-16 | Outpatient (CLI) | payer OTHER, MEDICAID | LOC: FIMAGING 12:15 | PROVIDERS: ATTEND Physician Assistant Surgical | DX: Z09 Encounter for follow-up examination after completed treatment for conditions other than malignant neoplasm (principal); Z98.1 Arthrodesis status ==

== ENCOUNTER → 2017-12-01 | Outpatient (CLI) | payer OTHER, MEDICAID | LOC: FIMAGING 12:06 | PROVIDERS: ATTEND Family Medicine | DX: M79.605 Pain in left leg (principal); M21.862 Other specified acquired deformities of left lower leg ==

== ENCOUNTER → 2018-01-17 | Outpatient (CLI) | payer OTHER, MEDICAID | LOC: FIMAGING 09:19 | PROVIDERS: ATTEND Physician Assistant Surgical | DX: M43.16 Spondylolisthesis, lumbar region (principal); M47.896 Other spondylosis, lumbar region; Z98.1 Arthrodesis status ==

== ENCOUNTER → 2018-07-03 | Outpatient (CLI) | payer OTHER | LOC: FIMAGING 12:08 | PROVIDERS: ATTEND Physician Assistant | DX: Z09 Encounter for follow-up examination after completed treatment for conditions other than malignant neoplasm (principal); Z98.1 Arthrodesis status ==